=== PATIENT | male | born 1960 | race Caucasian/White ===

== ENCOUNTER 2017-02-26 11:51 | Emergency (ER) | payer MEDICARE, MEDICAID ==
[2017-02-26 12:42] VITALS: BP 108/80
[2017-02-26] MEDS ORDERED: Tetan/Diph/Pertus SYR(Tdap)* 0.5 ML SYR(BOOSTRIX) use SYR IM ONE (12:53)
[2017-02-26] MEDS ORDERED: HYDROcodone/ACETAMIN 5-325 MG* 1 TAB PO ONE (12:53)
--- NOTE | 2017-02-26 13:01 | UC ---
Laceration HPI - HPI Summary HPI Summary: patient punctured his left hand when his screwdriver slipped hitting under the thumb. - History Of Current Complaint Chief Complaint: UCUpperExtremity Stated Complaint: LEFT HAND INJURY Time Seen by Provider: 02/26/17 12:49 Hx Obtained From: Patient Laceration Location: Hand - left Mechanism Of Injury: Sharp Trauma Onset/Duration: Sudden Onset, Lasting Hours Severity: Severe Aggravating Factors: Movement - Allergies/Home Medications Allergies/Adverse Reactions: Allergies Allergy/AdvReac Type Severity Reaction Status Date / Time Pregabalin [From Lyrica] Allergy Intermediate Rash Verified 02/26/17 12:33 Gabapentin Allergy See Comment Verified 02/26/17 12:33 butrin pain patch Allergy Rash Uncoded 02/26/17 12:33 Home Medications: Home Medications Cyclobenzaprine TAB* [Flexeril 10 MG TAB*] 10 mg PO TID PRN 02/26/17 [History Confirmed 02/26/17] PMH/Surg Hx/FS Hx/Imm Hx Previously Healthy: Yes Endocrine History Of: Denies: Diabetes Cardiovascular History Of: Denies: Hypertension, Pacemaker/ICD Respiratory History Of: Denies: Asthma GI/ History Of: Reports: Gall Bladder Disease - eitan Denies: Renal Disease Psychological History Of: Reports: Depression Denies: Anxiety - Surgical History Surgical History: Yes Surgery Procedure, Year, and Place: hernia, C 4-7 laminectomy, gallbladder - Family History Known Family History: Negative: Cardiac Disease, Hypertension - Social History Alcohol Use: None Substance Use Type: None Smoking Status (MU): Current Every Day Smoker Type: Cigarettes Amount Used/How Often: 5-6 CIGS PER DAY Length of Time of Smoking/Using Tobacco: 42 YRS Have You Smoked in the Last Year: Yes Household Exposure Type: Cigarettes - Immunization History Most Recent Influenza Vaccination: 2013 Most Recent Tetanus Shot: unk Most Recent Pneumonia Vaccination: <5 yrs Review of Systems Constitutional: Negative Skin: Other - puncture wound Eyes: Negative ENT: Negative Respiratory: Negative Cardiovascular: Negative Gastrointestinal: Negative Genitourinary: Negative Motor: Negative Neurovascular: Negative Musculoskeletal: Negative Neurological: Negative Psychological: Negative All Other Systems Reviewed And Are Negative: Yes Physical Exam Triage Information Reviewed: Yes Appearance: Well-Appearing, Well-Nourished, Pain Distress Vital Signs: Initial Vital Signs Temp 98.1 F 02/26/17 12:36 Pulse 89 02/26/17 12:36 Resp 18 02/26/17 12:36 BP 108/80 02/26/17 12:36 Pulse Ox 99 02/26/17 12:36 Vital Signs Reviewed: Yes Eye Exam: Normal Eyes: Positive: Conjunctiva Clear ENT Exam: Normal ENT: Positive: Hearing grossly normal, Pharynx normal, TMs normal Dental Exam: Normal Neck exam: Normal Neck: Positive: Supple, Nontender, No Lymphadenopathy Respiratory Exam: Normal Respiratory: Positive: Chest non-tender, Lungs clear, Normal breath sounds Cardiovascular Exam: Normal Cardiovascular: Positive: RRR, No Murmur, Pulses Normal Abdominal Exam: Normal Abdomen Description: Positive: Nontender, No Organomegaly, Soft Bowel Sounds: Positive: Present Musculoskeletal Exam: Normal Neurological Exam: Normal Psychological Exam: Normal Skin: Positive: Other - small 1 cm puncture wound in the left thenar eminence. good movement of wrist fingers and thumb, Laceration Course/Dx - Course/Dx Course Of Treatment: hx obtained, exam performed, meds reviewed, soaking of hand performed, pain med and tetanus given. i steri strip applied and abx prescribed, placed in a jenny wrap. - Differential Dx - Laceration/Wound Differental Diagnoses: Abrasion, Avulsion, Cellulitis, Fracture, Joint Infection , Laceration, Puncture Wound Provider Diagnoses: puncture wound to the left hand Discharge - Discharge Plan Condition: Stable Disposition: AGAINST MEDICAL ADVICE Prescriptions: Cephalexin CAP* [Keflex 500 CAP*] 500 mg PO BID #14 cap Hydrocodone-Acetaminophen [Vidalia 5-325 mg] 1 tab PO BID #4 tab MDD 2 tabs Patient Education Materials: Puncture Wound (ED) Referrals: Namrata Greenwood PA [Primary Care Provider] - Additional Instructions: take the antibiotics as prescribed. use ibuprofen as needed for pain and swelling. keep the area clean and dry. FOllow up with any increase in swelling, redness fever or unusual drainage or pain
== END 2017-02-26 13:41 | disposition home or self-care (01) ==
LOC: UCCORT 11:51
DX: S61.432A Puncture wound without foreign body of left hand, initial encounter (principal); W27.0XXA Contact with workbench tool, initial encounter; Y93.9 Activity, unspecified; Y92.9 Unspecified place or not applicable; Z23 Encounter for immunization; F32.9 Major depressive disorder, single episode, unspecified; Z90.49 Acquired absence of other specified parts of digestive tract; F17.210 Nicotine dependence, cigarettes, uncomplicated
CPT/HCPCS: 90471; 90715; 99212; G0463

== ENCOUNTER 2018-08-28 16:31 | Emergency (ER) | payer MEDICARE, MEDICAID ==
[2018-08-28 17:17] VITALS: BP 109/75
--- NOTE | 2018-08-28 17:52 | UC ---
UC General HPI - HPI Summary HPI Summary: pt states he has a several year hx of pain to his low back from disc disease and degeneration. he was under the care of [facility] but got discharged because he missed 2 appointments. he states he has f/u with [facility] on 09/09/18. he states that he is here for pain medication until then. pt states he came here before and got Percocet which worked well. pt states he went to the [facility] ER about 5 days ago and they prescribes IB and Flexeril. "I didn't pick them up because they don't work". plus he has flexeril from the last visit here. he denies any abdominal pain, fever, acute injury, numb/weak extremities and saddle anesthesia. he denies any bowel/bladder dysfunction. pt is also requesting an albuterol inhaler. - History of Current Complaint Chief Complaint: UCBackPain Stated Complaint: BACK PAIN Time Seen by Provider: 08/28/18 17:35 Pain Intensity: 9 Aggravating: prolonged seating, movement Associated Signs & Symptoms: Positive: Back Pain. Negative: Abdominal Pain, Fever, Weakness - Allergy/Home Medications Allergies/Adverse Reactions: Allergies Allergy/AdvReac Type Severity Reaction Status Date / Time gabapentin Allergy See Comment Verified 08/28/18 17:14 pregabalin [From Lyrica] Allergy Rash Verified 08/28/18 17:14 butrin pain patch Allergy Rash Uncoded 08/28/18 17:14 Home Medications: Home Medications DULoxetine DR CAP* [Cymbalta CAP*] 60 mg PO BID 08/28/18 [History Confirmed ] Omeprazole CAP* [Prilosec CAP* 20 MG] 20 mg PO DAILY 08/28/18 [History Confirmed 08/28/18] PMH/Surg Hx/FS Hx/Imm Hx - Additional Past Medical History Additional PMH: chronic low back pain, breathing problems GI/ History: Gastroesophageal Reflux - Surgical History Surgical History: Yes Surgery Procedure, Year, and Place: hernia, C 4-7 laminectomy, gallbladder. Abd sx for colitis. - Family History Known Family History: Positive: Diabetes Negative: Cardiac Disease, Hypertension - Social History Lives: With Family Alcohol Use: None Substance Use Type: None Smoking Status (MU): Current Every Day Smoker Type: Cigarettes Amount Used/How Often: 5-6 CIGS PER DAY Length of Time of Smoking/Using Tobacco: 42 YRS Have You Smoked in the Last Year: Yes Household Exposure Type: Cigarettes - Immunization History Most Recent Influenza Vaccination: 2013 Most Recent Tetanus Shot: unk Most Recent Pneumonia Vaccination: <5 yrs Vaccination Up to Date: Yes Review of Systems Constitutional: Negative Skin: Negative Eyes: Negative ENT: Negative Respiratory: Negative Cardiovascular: Negative Gastrointestinal: Negative Genitourinary: Negative Motor: Negative Neurovascular: Negative Musculoskeletal: Other: - low back pain Neurological: Negative Psychological: Negative Is Patient Immunocompromised?: No All Other Systems Reviewed And Are Negative: Yes Physical Exam Triage Information Reviewed: Yes Appearance: Well-Appearing Vital Signs: Initial Vital Signs Temp 98.5 F 08/28/18 17:10 Pulse 78 08/28/18 17:10 Resp 15 08/28/18 17:10 BP 109/75 08/28/18 17:10 Pulse Ox 100 08/28/18 17:10 Vital Signs Reviewed: Yes Eyes: Positive: Conjunctiva Clear ENT: Positive: Pharynx normal, TMs normal. Negative: Nasal congestion, Nasal drainage Neck: Positive: Supple, Nontender, No Lymphadenopathy Respiratory: Positive: Lungs clear, No respiratory distress, Decreased breath sounds Cardiovascular: Positive: RRR, No Murmur Abdomen Description: Positive: Nontender, No Organomegaly, Soft. Negative: Distended, Guarding, Pulsatile Mass Bowel Sounds: Positive: Present Musculoskeletal: Positive: Other: - Inspection of neck/back: decreased lordotic curve in lumbar region. tender over low back and paraspinal mm lumbar region. decreased rom low back. rest of back and spine are non tender. No saddle anesthesia. 5/5 strength, 2+ reflexes and superficial sensation intact x4. Neurological: Positive: Alert Psychological: Positive: Age Appropriate Behavior Skin Exam: Normal Skin: Negative: rashes Course/Dx - Course Course Of Treatment: no concern for infection. no acute abdomen or cauda equina. pt has mm relaxors thus will add steroid to his tx given hx of disc dz. pt notes chronic breathing issue and has low hx smoking. albuterol mdi works well for him thus will refill that. - Differential Dx - Multi-Symptom Provider Diagnoses: Chronic low back pain Discharge - Sign-Out/Discharge Documenting (check all that apply): Patient Departure All imaging exams completed and their final reports reviewed: No Studies - Discharge Plan Condition: Stable Disposition: HOME Prescriptions: Albuterol HFA INHALER* [Ventolin HFA Inhaler*] 2 puff INH Q6H PRN #1 mdi PRN Reason: Shortness Of Breath methylPREDNISolone [Medrol Dosepak 4 MG*] 0 mg PO .SEE LEONORA INSTRUCTION #1 tab Patient Education Materials: Chronic Back Pain (DC) Referrals: Namrata Greenwood PA [Primary Care Provider] - As Soon As Possible - Billing Disposition and Condition Condition: STABLE Disposition: Home
== END 2018-08-28 17:57 | disposition home or self-care (01) ==
LOC: UCCORT 16:31
DX: M54.5 Low back pain (principal); G89.29 Other chronic pain; K21.9 Gastro-esophageal reflux disease without esophagitis; F17.210 Nicotine dependence, cigarettes, uncomplicated; Z88.8 Allergy status to other drugs, medicaments and biological substances; Z79.899 Other long term (current) drug therapy
CPT/HCPCS: 99212; G0463